=== PATIENT | male | born 1935 | race African-American/Black ===

== ENCOUNTER 2023-10-01 11:12 | Emergency (ER) | payer OTHER ==
[~2023-10-01] VITALS: Ht 177.8 cm; Wt 68.0 kg
[2023-10-01 11:15] VITALS: O2SAT 98
[2023-10-01] MEDS: SODIUM CHLORIDE 0.9% 1,000 ML IV ONE (11:31)
[2023-10-01 11:35] LABS: BG BASE EXCESS 1.9 mmol/L (-2.0-2.0); BG CARBOXYHEMOGLOBIN 0.1 % (0.5-1.5); BG DEOXYHEMOGLOBIN 3.3 % (0.0-5.0); BG HCO3 ACT 26.6 mmol/L (22.0-26.0); BG METHEMOGLOBIN 0.1 % (0.0-1.5); BG OXYGEN SATURATION 96.7 % (92.0-98.5); BG OXYHEMOGLOBIN 96.5 % (94.0-97.0); BG PCO2 42.4 mmHg (35.0-45.0); BG PH 7.416 (7.350-7.450); BG SAMPLE SITE RIGHT RADIAL; BG TOTAL HEMOGLOBIN 10.7 g/dL (12.0-18.0); BG VENT MODE ROOM AIR
[2023-10-01 11:42] LABS: BASOPHILS % 0.9 % (0.0-2.0); HEMATOCRIT. 29.6 % (42.0-52.0); HEMOGLOBIN. 9.9 g/dL (14.0-18.0); MEAN CORPUSCULAR HEMOGLOBIN 31.7 pg (28.0-32.0); MEAN CORPUSCULAR HGB CONC 33.3 g/dL (31.0-37.0); MEAN CORPUSCULAR VOLUME 95.3 fL (80.0-94.0); MEAN PLATELET VOLUME 7.4 fl (7.4-10.4); MONOCYTES % 9.8 % (2.0-8.0); NEUTROPHILS % 57.3 % (40.0-76.0); PLATELET 168 x1000/uL (130-400); RED BLOOD CELL COUNT 3.11 mill/uL (4.7-6.1); RED CELL DISTRIBUTION WIDTH 15.4 % (11.6-14.6); WHITE BLOOD COUNT 4.5 x1000/uL (4.5-11.0)
[2023-10-01 11:52] LABS: PROTHROMBIN TIME 11.5 sec (9.6-11.0)
[2023-10-01 11:53] LABS: ALANINE AMINOTRANSFERASE < 7 IU/L (10-49); ALBUMIN 3.6 g/dL (3.2-4.8); ASPARTATE AMINOTRANSFERASE 16 IU/L (<34); BILIRUBIN TOTAL 0.4 mg/dL (0.1-1.0); CALCIUM 8.3 mg/dL (8.7-10.4); CARBON DIOXIDE 29 mEq/L (21-32); CHLORIDE 105 mEq/L (98-107); GLUCOSE 119 mg/dL (70-105); LACTIC ACID 2.2 mmol/L (0.4-2.0); POTASSIUM 3.8 mEq/L (3.5-5.1); PROTEIN TOTAL 7.2 g/dL (6.0-8.3); SODIUM 139 mEq/L (136-145); TROPONIN I HIGH SENSITIVITY 9 ng/L (3.0-53); UREA NITROGEN BLOOD 14 mg/dL (9-23)
[2023-10-01] MEDS: SODIUM CHLORIDE 0.9% 1000ML BAG (SEPSIS BOLUS) IV ONE (12:45)
[2023-10-01] MEDS: PIPERACILLIN/TAZO 3.375G/50ML 50 ML IV ONE (12:51)
[2023-10-01 12:55] VITALS: BP 141/68; PULSE 73; RESP 12; TEMP 98.2
[2023-10-01] MEDS: VANCOMYCIN 1G PREMIX 200 ML IV ONE (13:30)
[2023-10-01] MEDS ORDERED: NA PHOS,M-B/NA PHOS,DI-BA ENEMA 118ML PR PRN (22:45)
[2023-10-01] MEDS ORDERED: CLONIDINE 0.1MG TABLET PO PRN (22:45)
[2023-10-01] MEDS ORDERED: IPRATROPIUM/ALBUTEROL 0.5-3(2.5)MG/3ML NEB NEB PRN (22:45)
[2023-10-01] MEDS ORDERED: DIPHENHYDRAMINE 50MG/ML VIAL IV PRN (22:45)
[2023-10-01] MEDS ORDERED: GUAIFENESIN 200MG/10ML SUGAR FREE UDC PO PRN (22:45)
[2023-10-01] MEDS ORDERED: ONDANSETRON HCL 4MG/2ML INJ IV PRN (22:45)
[2023-10-01] MEDS ORDERED: DOCUSATE SODIUM 100MG CAPSULE PO PRN (22:45)
[2023-10-01] MEDS ORDERED: HYDROCODONE/ACETAMINOPHEN 5/325MG TABLET PO PRN (22:45)
[2023-10-01] MEDS ORDERED: MAGNESIUM/ALUMINUM HYDROXIDE/SIMETHICONE 30ML UDC PO PRN (22:45)
[2023-10-01] MEDS ORDERED: ACETAMINOPHEN 325MG TABLET PO PRN (22:45)
[2023-10-01] MEDS ORDERED: SODIUM CHLORIDE 0.45% 1,000 ML IV SCH (23:00)
[2023-10-02] MEDS ORDERED: PIPERACILLIN/TAZO 3.375G/50ML 50 ML IV SCH (06:00)
== END 2023-10-01 16:00 | disposition left against medical advice (07) ==
LOC: ER 11:34 → EDBEDREQTM 12:52 → EDBEDREQSVC 12:52 → EDBEDREQ 12:52 → CANBEDREQ 15:18 → ER 16:00
DX: I95.9 Hypotension, unspecified (principal); G20.A1 Parkinson's disease without dyskinesia, without mention of fluctuations; Z96.653 Presence of artificial knee joint, bilateral
CPT/HCPCS: 99291; 96365; 70450; 96361; 96375; 80053; 83605; 85025; 85610; 87040; 84484; 36415; 84145; 71045; 82805; 82375; 93005; 96368; 36600; J2543; J3370; J7030